=== PATIENT | female | born 1995 | race Caucasian/White ===

== ENCOUNTER 2016-12-20 20:36 | Emergency (ER) | payer OTHER ==
[~2016-12-20] VITALS: Ht 167.6 cm; Wt 59.0 kg
[2016-12-20] MEDS ORDERED: IBUPROFEN 600 MG TABLET PO ONE ×2 (20:53→21:00)
--- NOTE | 2016-12-20 21:02 | NUR ---
[facility] [employer] SIGNED AND GIVEN TO [employer].
--- NOTE | 2016-12-20 21:02 | NUR ---
PT PRESENTED TO THE ER WITH A C/O LT ANKLE PAIN S/P INJURY WHILE PLAYING VOLLEYBALL. PT IS NOT ABLE TO PUT WEIGHT ON THE LLE. PT REC'D AN ICE PACK AND LLE ELEVATED ON BLANKETS.
--- NOTE | 2016-12-20 21:04 | NUR ---
XRAY DONE AT THE BEDSIDE.
--- NOTE | 2016-12-20 21:31 | NUR ---
PT C/O FEELING COLD. PT REC'D BLANKETS.
--- NOTE | 2016-12-20 21:52 | NUR ---
Crutches dispensed. Pt instructed on proper use of crutches. Patient able to demonstrate correct use of crutches.
--- NOTE | 2016-12-20 21:57 | NUR ---
Patient discharged to home in stable condition. Written and verbal after care instructions given. Patient verbalizes understanding of instruction AND RX. PT REC'D AN FORREST BANDAGE TO LT ANKLE. PT LEFT VIA WC TO THE LOBBY. VSS
[2016-12-20 21:58] VITALS: BP 116/65
== END 2016-12-20 21:59 | disposition home or self-care (01) ==
LOC: ER 20:36
DX: S93.402A Sprain of unspecified ligament of left ankle, initial encounter (principal); Z88.0 Allergy status to penicillin; X58.XXXA Exposure to other specified factors, initial encounter; Y93.68 Activity, volleyball (beach) (court); Y92.89 Other specified places as the place of occurrence of the external cause; Y99.9 Unspecified external cause status
CPT/HCPCS: 73610; 99284; A4606; Z7610